=== PATIENT | male | born 1970 | race Caucasian/White ===

== ENCOUNTER → 2016-06-13 | Outpatient (CLI) | payer BC | END | disposition disaster alternative care site (69) | LOC: GRAD 06-03 09:00 | DX: R13.10 Dysphagia, unspecified (principal) ==

== ENCOUNTER → 2016-06-30 | Outpatient (CLI) | payer BC ==
--- NOTE | ~2016-06-30 | PUL ---
PATIENT'S NAME: YADIRA BANDA [facility] AGE: 46 Y [address] ROOM: [place] [id number] LOCATION: [facility] ADMIT DATE: 06/30/2016 Pulmonary DISCHARGE DATE: FAMILY PHYSICIAN: AALIYAH KIMBROUGH MD ATTENDING PHYSICIAN: AALIYAH KIMBROUGH NAME OF PROCEDURE: Home sleep test DATE OF PROCEDURE: 06/30/16 TECH: Lexis Friedman [facility] SUMMARY: Patient underwent home sleep testing using a type III device and was studied for 7 hours 2 minutes. In that time there were 11 obstructive apneas, 9 central apneas and 76 hypopneas for an apnea/hypopnea index mildly elevated at 13.6 events per hour. Oxygen saturations ranged from 86%-94%. Heart rate ranged from 37-91 beats per minute. Saturations were below 88% for fewer than 5 minutes. IMPRESSION: Mild mixed obstructive and central sleep apnea. PLAN: Patient will receive results from the ordering provider. MD DANIELLE HADLEY/ /[id number] dtt: 07/11/16 1018 , Duncan Culver dtd: 07/07/16 1506
== END | disposition disaster alternative care site (69) ==
LOC: GSLP
DX: I49.9 Cardiac arrhythmia, unspecified (principal); R53.83 Other fatigue
CPT/HCPCS: G0399